=== PATIENT | female | born 1990 | race Two or more races ===

== ENCOUNTER 2025-01-07 11:19 | Outpatient (CLI) | payer OTHER | END 2025-01-07 11:20 | disposition home or self-care (01) | LOC: PRENATAL 11:19 | PROVIDERS: ATTEND Obstetrics & Gynecology Maternal & Fetal Medicine | DX: O44.02 Complete placenta previa NOS or without hemorrhage, second trimester (principal); O09.512 Supervision of elderly primigravida, second trimester; O28.3 Abnormal ultrasonic finding on antenatal screening of mother; Z3A.19 19 weeks gestation of pregnancy ==